=== PATIENT | female | born 1965 | race Caucasian/White ===

== ENCOUNTER 2020-02-22 17:14 | Observation (INO) | payer MEDICARE ==
[~2020-02-22] VITALS: Ht 162.6 cm; Wt 65.9 kg
[~2020-02-22 17:14] MED LIST: CYCLOBENZAPRINE10 MG PO; HYDROCODONE-APA1 TAB PO; MOBIC7.5 MG PO; PHENERGAN25 M1 PO; TRAZODONE HCL150 MG PO; ULTRAM50 MG PO; VALIUM10 MG PO
[2020-02-22] MEDS ORDERED: MOBIC7.5 MG PO (17:18)
[2020-02-22] MEDS ORDERED: TOPROL XL25 MG PO (17:18)
[2020-02-22 18:21] LABS: BASOPHILS 0.2 % (0-2); EOSINOPHILS 0.9 % (0-7); HEMATOCRIT 37.2 % (36.0-48.0); HEMOGLOBIN 11.8 g/dL (12-16); IMMATURE GRANULOCYTES 0.2 % (0-5); LYMPHOCYTES 18.1 % (15-50); MCH 31.2 pg (26.0-34.0); MCHC 31.7 g/dL (31.0-37.0); MCV 98.4 fL (80.0-100.0); MEAN PLATELET VOLUME 9.8 fL (7.4-10.4); MONOCYTES 5.2 % (2-11); NEUTROPHILS 75.4 % (40-80); PLATELET COUNT 252 10x3/uL (130-400); RBC 3.78 10x6/uL (4.00-5.40); RDW 13.3 % (11.5-14.5); WBC 12.2 10x3/uL (4.8-10.8)
[2020-02-22 18:29] LABS: CALCIUM 8.2 mg/dL (8.5-10.1); CARBON DIOXIDE 27.8 mmol/L (21.0-32.0); CREATININE - SERUM 1.2 mg/dL (0.6-1.3); INR 1.02 (0.85-1.17); POTASSIUM - SERUM 3.8 mmol/L (3.5-5.1); PROTIME 13.3 SECONDS (11.6-15.0)
[2020-02-22 18:30] LABS: BILIRUBIN NEGATIVE (NEGATIVE); GLUCOSE NEGATIVE (NEGATIVE); KETONE NEGATIVE (NEGATIVE); NITRITE NEGATIVE (NEGATIVE); SPECIFIC GRAVITY 1.025 (1.005-1.020); UROBILINOGEN NORMAL (NORMAL)
[2020-02-22 18:36] LABS: ALBUMIN 3.9 g/dL (3.4-5.0); BILIRUBIN - TOTAL 0.17 mg/dL (0.2-1.3); PROTEIN - SERUM 6.8 g/dL (6.4-8.2)
[2020-02-22 20:00] VITALS: BP 124/51
--- NOTE | 2020-02-22 20:00 | NUR ---
PATIENT RESTING IN BED WATCHING TV. NO S/S OF DISTRESS. NO C/O AT THIS TIME. PATIENT HAS LEFT WRIST IV, NORMAL SALINE @ 125 ML/HR. IV IS PATENT WITHOUT REDNESS, SWELLING, OR TENDERNESS. PATIENT HAS CAST ON BROKEN RIGHT ANKLE. FOOT IS ELEVATED ABOVE THE HEART ON PILLOWS. PATIENT HAS SURGERY IN THE MORNING ON HER ANKLE AND CONSENTS ARE SIGNED. PATIENT IS NPO AFTER MIDNIGHT. CALL LIGHT IN PLACE. WILL CONTINUE TO MONITOR.
[2020-02-23] VITALS: BP 131/56
[2020-02-23 02:56] VITALS: Ht 162.6 cm; Wt 65.9 kg
[2020-02-23 04:00] VITALS: BP 129/60
[2020-02-23 05:32] LABS: BASOPHILS 0.1 % (0-2); EOSINOPHILS 1.7 % (0-7); HEMOGLOBIN 11.1 g/dL (12-16); IMMATURE GRANULOCYTES 0.1 % (0-5); LYMPHOCYTES 32.4 % (15-50); MCH 30.9 pg (26.0-34.0); MCHC 31.7 g/dL (31.0-37.0); MCV 97.5 fL (80.0-100.0); MEAN PLATELET VOLUME 9.4 fL (7.4-10.4); MONOCYTES 8.8 % (2-11); NEUTROPHILS 56.9 % (40-80); PLATELET COUNT 219 10x3/uL (130-400); RBC 3.59 10x6/uL (4.00-5.40); RDW 13.3 % (11.5-14.5)
[2020-02-23 05:42] LABS: WBC 8.3 10x3/uL (4.8-10.8)
[2020-02-23 05:51] LABS: ALBUMIN 3.3 g/dL (3.4-5.0); ANION GAP 10.8 mmol/L (8-16); BILIRUBIN - TOTAL 0.24 mg/dL (0.2-1.3); CARBON DIOXIDE 25.9 mmol/L (21.0-32.0); POTASSIUM - SERUM 3.7 mmol/L (3.5-5.1)
[2020-02-23 09:00] VITALS: BP 110/62
--- NOTE | 2020-02-23 09:49 | MORECARE ---
CASE MANAGEMENT DISCHARGE SUMMARY PATIENT: RAQUEL ALEXANDER UNIT: [id number] ADM DATE: 02/22/20 AGE: 54 : 61 SEX: F ROOM/BED: D.[facility] AUTHOR: ANNIE BANGURA PHYSICIAN: REFERRING PHYSICIAN: MARICEL GARCÍA DO DATE OF SERVICE: 02/23/20 Discharge Plan Patient Name: RAQUEL ALEXANDER [facility] [facility] 1965 Planned Disposition: Home Anticipated Discharge Date: Discharge Date: Expected LOS: Initial Reviewer: [email or web address] Initial Review Date: 02/23/2020 Generated: 02/23/20 10:49 am DCPIA - Discharge Planning Initial Assessment Updated by [email or web address]: Gregoria Dai on 02/23/20 9:46 am * Is the patient Alert and Oriented? Yes * How many steps to enter\exit or inside your home? 0/0 * PCP Dr. Berman * Pharmacy [facility] on [facility] * Preadmission Environment Home with Family * ADLs Independent * Equipment None * List name and contact numbers for known caregivers / representatives who currently or will assist patient after discharge: [facility] - [phone] * Verbal permission to speak to the caregivers and representatives has been obtained from the patient. Yes * Community resources currently utilized None * Additional services required to return to the preadmission environment? Yes * Can the patient safely return to the preadmission environment? Yes * Has this patient been hospitalized within the prior 30 days at any hospital? No Patient Name: RAQUEL ALEXANDER Page [id number] at 0949 All edits/amendments must be made on the electronic document DICTATION DATE: 02/23/20948 DIRECTOR FURNITURE: MINI 02/23/20948 RPT#: [id number] DC DATE: STATUS: ADM IN [facility] [address] [place] [address] END OF REPORT
--- NOTE | 2020-02-23 10:16 | MORECARE ---
CASE MANAGEMENT DISCHARGE SUMMARY PATIENT: RAQUEL ALEXANDER UNIT: [id number] ADM DATE: 02/22/20 AGE: 54 : 61 SEX: F ROOM/BED: D.2233 AUTHOR: WILLEM,DOC PHYSICIAN: REFERRING PHYSICIAN: MARICEL GARCÍA DO DATE OF SERVICE: 02/23/20 Discharge Plan Patient Name: RAQUEL ALEXANDER Facility: [facility]:[place] : 1965 Planned Disposition: Home Anticipated Discharge Date: Discharge Date: Expected LOS: Initial Reviewer: [email or web address] Initial Review Date: 02/23/2020 Generated: 02/23/20 11:16 am Comments DCP- Discharge Planning Updated by [email or web address]: Gregoria Dai on 02/23/20 9:[address] Patient Name: RAQUEL ALEXANDER Admission Status: ER Accout number: [id number] Admission Date: 02-22-2020 : 1965 Admission Diagnosis: Attending: MARICEL GARCÍA Current LOS: 1 Anticipated DC Date: Planned Disposition: Home Primary Insurance: [employer] ADV Discharge Planning Comments: CM met with patient to discuss discharge plan/needs. She states with her fibromyalgia, she will be unable to use crutches. She states that ideally she would like a rollator walker for home. She states that she does not want a 2 wheeled walker. States she can borrow a rollator or walker if her insurance will not purchase one. I have called [facility]er Gaspar, [facility]. They all say that they do not deliver walkers on the weekend. I spoke with the patient and informed her that [facility] carries the rollator that she may purchase one through her insurance there. She also states she has access to a 2 wheeled walker that she can use. CM will continue to follow and assist with discharge planning/needs. Recovery Specialist: Gregoria Dai DCPIA - Discharge Planning Initial Assessment Updated by [email or web address]: Gregoria Dai on 02/23/20 9:46 am * Is the patient Alert and Oriented? Yes * How many steps to enter\exit or inside your home? 0/0 * PCP Dr. Berman * Pharmacy [facility] on [facility] * Preadmission Environment Home with Family * ADLs Independent * Equipment None * List name and contact numbers for known caregivers / representatives who currently or will assist patient after discharge: Yeison raygoza - [phone] * Verbal permission to speak to the caregivers and representatives has been obtained from the patient. Yes * Community resources currently utilized None * Additional services required to return to the preadmission environment? Yes * Can the patient safely return to the preadmission environment? Yes * Has this patient been hospitalized within the prior 30 days at any hospital? No Coverage Notice Reviewer: [email or web address] Darrian Dai Notice Issued Date-Time: 02/23/2020 9:30 Notice Type: Medicare Outpatient Observation Notice Notice Delivered To: Patient Relationship to Patient: Self Open Hearth Melter Name: Delivery Method: HAND - Hand Delivered Brittni Days: Prior Verbal Notification: Recipient Understood Notice: Yes Recipient Signature: Yes Med Rec Note Co-signed by Attending: Coverage Notice Comment: SIVAN explained, signed, given, copy placed in MR Last DP export: 02/23/20 8:50 a Patient Name: RAQUEL ALEXANDER Page [phone] at 1016 All edits/amendments must be made on the electronic document DICTATION DATE: 02/23/20 1016 BODY SHOP MANAGER: MINI 02/23/20 1016 RPT#: [id number] DC DATE: STATUS: ADM IN [facility] [address] [place] [address] END OF REPORT
[2020-02-23] MEDS ORDERED: ELIQUIS2.5 MG PO (12:49)
[2020-02-23] MEDS ORDERED: PERCOCET 10-321 EAC1 PO (12:49)
[2020-02-23] MEDS ORDERED: VISTARIL50 MG PO (12:50)
[2020-02-23 13:12] VITALS: BP 136/59
[2020-02-23 14:18] VITALS: BP 133/87
--- NOTE | 2020-02-23 17:32 | NUR ---
DISCHARGE PAPERWORK SIGNED, ALL QUESTIONS ANSWERED. IV TO LEFT HAND DC'D, TIP INTACT. ESCORTED OUT VIA WHEELCHAIR.
--- NOTE | 2020-02-24 11:53 | OP ---
PATIENT NAME: RAQUEL ALEXANDER MEDICAL RECORD: [id number] :[birth year] LOCATION:D.[facility] [id number] ADMISSION DATE:02/22/20 SURGEON: MARICEL GARCÍA DO DATE OF OPERATION: 02/23/2020 PROCEDURE PERFORMED: Right ankle open reduction internal fixation. PREOPERATIVE DIAGNOSIS: Right ankle trimalleolar fracture. POSTOPERATIVE DIAGNOSIS: Right ankle trimalleolar fracture. INDICATIONS: Ms. Alexander is a 54-year-old female who was out in the [facility] yesterday and tripped over a root and twisted her ankle. She had a fracture and ankle joint subluxation. She was seen in the ER, reduced the ankle and then wanted her admitted overnight for pain control and with anticipation of fixing her ankle today. I informed her of the risks including, malunion, nonunion, continued ankle pain, need for further surgery, infection, bleeding, damage to the superficial peroneal nerve, which give her foot numbness, pain, blood clots, and even and that should be nonweightbearing for 8 weeks approximately, she was okay with that and signed a consent. SURGEON: Maricel García DO DESCRIPTION OF PROCEDURE: The patient taken to the operative suite, laid in supine position, given general anesthetic and LMA was placed. She was given 2 grams of Ancef preoperatively. The right lower extremity was then prepped and draped in sterile fashion. Time-out was performed. Everyone was in agreeance with the correct site, site, patient and procedure. I then exsanguinated the right lower extremity with Esmarch and tourniquet was inflated to 350 mmHg, it was up for 52 minutes. We then began by making an incision along the lateral ankle. Careful dissection was made down to the fibula, it was reduced. The plate was put on and once it was in place, K-wires were put distally and put a cortical screw in proximally to hold it into place. We then locked this plate distally and then put more screws in proximally and locked the most proximal one. I then addressed the medial malleolus using two K wires to reduce the fracture and then put 2 cannulated screws over them. The more posterior one was removed as it was seen be a little bit too posterior on x-ray and then it was readjusted. The syndesmosis was then fixed as it was a Horne C fracture and it most likely got the syndesmosis and appeared to be that way on testing. I then clamped the ankle joint together and put a ZipTight proximally above the fracture and then one distally. I put a JuggerKnot syndesmotic fixation suture anchor with a button through the tibia unicortically. Once these were cinched down, the clamp was taken off and the fibula was tested and was seen to be in good position, holding the syndesmosis in a good spot. The tourniquet was then let down and any bleeding was coagulated with the Bovie and the site was irrigated and closed the wound with 2-0 Vicryl in an inverted interrupted fashion and ZipLine placed on the lateral ankle. The medial malleolus, where the small incision pole holes were made for the malleolus fracture were closed first with 4-0 inverted interrupted on the anterior one and 4-0 Monocryl horizontal mattress on the more posterior incision. These were then dressed with Adaptic, 4 x 4s, ABD, Webril and a posterior splint was placed on the ankle and secured with an Terence wrap. She was then awakened and taken to recovery in stable condition. She did get a block prior to starting the procedure by anesthesia. Blood loss was approximately 50 mL. OPERATIVE REPORT [id number] RAQUEL ALEXANDER COMPLICATIONS: None. TRANSINT:[id number] Voice Confirmation ID: [id number] DOCUMENT ID: [id number] MARICEL GARCÍA DO at 1153 CC: [id number] DICTATION DATE: 02/23/20 1255 HR RECEPTIONIST: 02/23/20 1810 DIS IN 02/23/20 [facility] [address] [place] [address]
--- NOTE | 2020-02-24 14:35 | MORECARE ---
CASE MANAGEMENT DISCHARGE SUMMARY PATIENT: RAQUEL ALEXANDER UNIT: [id number] ADM DATE: 02/22/20 AGE: 54 : 61 SEX: F ROOM/BED: D.2233 AUTHOR: WILLEM,DOC PHYSICIAN: REFERRING PHYSICIAN: MARICEL GARCÍA DO DATE OF SERVICE: 02/24/20 Discharge Plan Patient Name: RAQUEL ALEXANDER Facility: [facility]:[place] : 1965 Planned Disposition: Home Anticipated Discharge Date: Discharge Date: 02/23/2020 Expected LOS: 0 Initial Reviewer: [email or web address] Initial Review Date: 02/23/2020 Generated: 02/24/20 3:35 pm Comments DCP- Discharge Planning Updated by [email or web address]: Gregoria Dai on 02/23/20 9:[address] Patient Name: RAQUEL ALEXANDER Admission Status: ER Accout number: [id number] Admission Date: 02-22-2020 : 1965 Admission Diagnosis: Attending: MARICEL GARCÍA Current LOS: 1 Anticipated DC Date: Planned Disposition: Home Primary Insurance: [employer] ADV Discharge Planning Comments: CM met with patient to discuss discharge plan/needs. She states with her fibromyalgia, she will be unable to use crutches. She states that ideally she would like a rollator walker for home. She states that she does not want a 2 wheeled walker. States she can borrow a rollator or walker if her insurance will not purchase one. I have called Royer Gaspar, [facility]. They all say that they do not deliver walkers on the weekend. I spoke with the patient and informed her that [facility] carries the rollator that she may purchase one through her insurance there. She also states she has access to a 2 wheeled walker that she can use. CM will continue to follow and assist with discharge planning/needs. Production Intern: Gregoria Dai DCPIA - Discharge Planning Initial Assessment Updated by [email or web address]: Gregoria Dai on 02/23/20 9:46 am * Is the patient Alert and Oriented? Yes * How many steps to enter\exit or inside your home? 0/0 * PCP Dr. Berman * Pharmacy [facility] on [facility] * Preadmission Environment Home with Family * ADLs Independent * Equipment None * List name and contact numbers for known caregivers / representatives who currently or will assist patient after discharge: Yeison raygoza - [phone] * Verbal permission to speak to the caregivers and representatives has been obtained from the patient. Yes * Community resources currently utilized None * Additional services required to return to the preadmission environment? Yes * Can the patient safely return to the preadmission environment? Yes * Has this patient been hospitalized within the prior 30 days at any hospital? No Coverage Notice Reviewer: [id number] Darrian Dai Notice Issued Date-Time: 02/23/2020 9:30 Notice Type: Medicare Outpatient Observation Notice Notice Delivered To: Patient Relationship to Patient: Self Tool Adjuster Name: Delivery Method: HAND - Hand Delivered Brittni Days: Prior Verbal Notification: Recipient Understood Notice: Yes Recipient Signature: Yes Med Rec Note Co-signed by Attending: Coverage Notice Comment: SIVAN explained, signed, given, copy placed in MR Last DP export: 02/23/20 9:16 a Patient Name: RAQUEL ALEXANDER Page [id number] at 1435 All edits/amendments must be made on the electronic document DICTATION DATE: 02/24/20 1435 STRAIGHTENER AND ALIGNER: MINI 02/24/20 1435 RPT#: [id number] DC DATE:02/23/20 STATUS: DIS IN [facility] [address] [place] [address] END OF REPORT
== END 2020-02-23 17:33 | disposition home or self-care (01) ==
LOC: D.ER 17:14 → D.MS 18:28 → OBSVTIME 18:28 → D.MS 02-23 17:33
PROVIDERS: Family Medicine; ADMIT Orthopaedic Surgery; ATTEND Orthopaedic Surgery
DX: S82.851A Displaced trimalleolar fracture of right lower leg, initial encounter for closed fracture (principal); W01.0XXA Fall on same level from slipping, tripping and stumbling without subsequent striking against object, initial encounter

== ENCOUNTER 2021-01-13 20:30 | Emergency (ER) | payer MEDICARE ==
[~2021-01-13] VITALS: Ht 162.6 cm; Wt 81.8 kg
[~2021-01-13 20:30] MED LIST changes: +ELIQUIS2.5 MG PO; +PERCOCET 10-321 EAC1 PO; +TOPROL XL25 MG PO; +VISTARIL50 MG PO
[2021-01-13 20:37] VITALS: BP 171/99; Ht 162.6 cm; Wt 81.8 kg
== END 2021-01-13 21:11 | disposition home or self-care (01) ==
LOC: D.ER 20:30
DX: G47.00 Insomnia, unspecified (principal)